=== PATIENT | female | born 2000 | race African-American/Black ===

== ENCOUNTER 2024-02-25 19:00 | Emergency (ER) | payer OTHER, SELFPAY ==
[2024-02-25 19:06] VITALS: BP 156/105; BMI 31.0
[2024-02-25 19:21] LABS: % Basophils 0.6 % (0-2); % Eosinophils 0.8 % (0-6); % Immature Granulocytes 0.4 % (0-0.5); % Lymphocytes 32.7 % (20.5-51.1); % Monocytes 8.1 % (1.7-9.3); % Neutrophils 57.4 % (42.2-75.2); Absolute Lymphocytes 1.7 10^3/uL (1.2-3.4); Absolute Monocytes 0.4 10^3/uL (0.1-0.6); Absolute Neutrophils 2.9 10^3/uL (1.4-6.5); Hematocrit 35.6 % (37.0-47.0); Hemoglobin 11.9 g/dL (12.0-16.0); Mean Corp Hgb Conc. 33.4 g/dL (33.0-37.0); Mean Corpuscular Hgb 26.7 pg (27.0-31.0); Mean Platelet Volume 9.3 fL (7.4-10.4); Nucleated Red Blood Cells % 0 %; Platelet Count 279 10^3/uL (130-400); Red Blood Cell Count 4.45 10^6/uL (4.20-5.40); Red Cell Dist. Width 12.4 % (11.5-14.5); White Blood Cell Count 5.1 10^3/uL (4.8-10.8)
[2024-02-25 19:45] LABS: ALT (SGPT) 23 U/L (0-35); AST (SGOT) 28 U/L (14-36); Albumin 4.5 g/dl (3.5-5.0); Alkaline Phosphatase 85 U/L (38-126); Blood Urea Nitrogen 7 mg/dl (7-17); Calcium 9.5 mg/dl (8.4-10.2); Carbon Dioxide 23 mmol/L (22-30); Chloride 106 mmol/L (98-107); Estimated Creatinine Clearance 117 ml/min; Glucose 106 mg/dl (70-99); Lipase 193 U/L (23-300); Potassium 3.7 mmol/L (3.5-5.1); Sodium 136 mmol/L (135-145); Total Protein 7.2 g/dl (6.3-8.2); eGFR > 60.00
[2024-02-25 23:02] LABS: Urine Albumin Negative (Neg - Trace); Urine Bilirubin Negative (Negative); Urine Character Clear (Clear); Urine Color Yellow; Urine Glucose Negative (Negative); Urine Ketone Negative (Negative); Urine Leukocyte Negative (Negative); Urine Nitrite Negative (Negative); Urine Occult Blood Negative (Negative); Urine Specific Gravity 1.015 (<1.030); Urine Urobilinogen Negative (Neg - 1+); Urine pH 6.5 (5.0-9.0)
[2024-02-25] MEDS: TORADOL 30 MG IV (23:18)
[2024-02-25 23:22] LABS: HCG, Serum Qualitative Screen Negative
--- NOTE | 2024-02-26 00:26 | ED.GENMED ---
History of Present Illness
General
Chief Complaint: Abdominal Pain
Source: patient
Exam Limitations: none
Time Seen by Provider: 02/25/24 22:20
Nursing documentation reviewed up to this point in time: agreed with
Travel History
Have you had any contact with someone who has COVID-19?: No
Do you have any symptoms of coronavirus? Fever > 100 degrees, chills, cough, shortness of breath, sore throat, loss of taste or smell, muscle aches, or headache?: No
History of Present Illness
History of Present Illness:
This is a 23-year-old woman who complains of persistent left upper quadrant to left flank pain that began end of December, persistent daily pain with intermittent waves of severe pain accompanied with nausea, occasional vomiting. Left upper
quadrant pain occasionally radiates to her left lower quadrant, sometimes worse with movement, sometimes worse or exacerbated after passing a bowel movement. She has been moving her bowels at least once per day reports passing soft to firm stools.
She denies dysuria and urgency and or hematuria. She denies fever nor chills. No insightful injury but does admit to remaining active on a daily basis at work.
Yesterday the pain worsened after eating a banana causing nausea and 1 episode of vomiting.
Evaluated by her PCP last month and was started on omeprazole 20 mg twice daily in early January. Thus far has had no improvement in discomfort.
She does note occasional sore throat but denies cough nor chest pain nor shortness of breath.
She also notes occasional flares of increased pain accompanied with diaphoresis and fine itchy rash that develops on her upper chest, upper lip, bilateral forearms/antecubital fossa's. She denies swelling nor urticarial rash, no accompanying cough
nor shortness of breath. Itchy rash in pain eventually resolve within a few hours.
Last menstrual period February 15 and normal and on time. She denies risk of .
Other than twice daily omeprazole her only other medication is MetroGel for BV.
Past History
Past History
ED Past Medical History: Other (Bacterial vaginosis)
ED Past Surgical History: None
Social History
Tobacco: Non-smoker
Alcohol: None
Drug: None
Personal:
Living: with family
Employment: Employed
Family History
Family History: Other (Noncontributory)
Phy Exam
Physical Exam
Physical Exam:
GENERAL: Alert , in no apparent distress. 23-year-old female appears her stated age, bright and alert, pleasant, appears in no acute distress.
EYE: anicteric
NECK: Supple, nontender, no meningismus, no significant adenopathy.
ENT: posterior pharynx is clear, oral mucosa is moist. No rhinorrhea.
CARDIAC: Regular rate and rhythm. no murmur.
LUNGS: Clear breath sounds bilaterally, no acute respiratory distress, no wheezes/rales/rhonchi
ABDOMEN: Soft, nondistended, mild to moderate tenderness left upper lateral quadrant, left lateral flank as well as left CVA tenderness to palpation. No r/g, no palpable masses. Normoactive BS.
NEUROLOGICAL: Alert and oriented x3, no focal neuro deficits. Gait is gillespie and steady.
SKIN: Warm and dry, normal color, skin intact. No rash.
MUSCULOSKELETAL: No C/C/E. peripheral pulses are full and equal b/l. No palpable tenderness.
PSYCH: Normal and appropriate interaction.
Course
Orders/Labs/Results
Orders:
Orders
02/25/24 19:15
Complete Blood Count/With Diff Urgent
Comprehensive Metabolic Panel Urgent
HCG, Serum Qualitative Screen Urgent
Comment: ADD ON
Lipase Urgent
02/25/24 22:49
Add On- LAB Urgent
Tests Added?: qual serum HCG
02/25/24 22:56
Urinalysis Reflex To Culture Urgent
Date Specimen was Collected: 02/25/24
Time Specimen was Collected: 22:55
02/25/24 23:14
Ketorolac [Toradol] 30 mg .ROUTE .STK-MED ONE
02/25/24 23:17
Ketorolac [Toradol] 30 mg IV NOW STA
02/26/24 00:30
CT Abd/pelvis W Iv Cont Urgent
Reason For Exam: persistent LUQ to L flank pain w N, intermittent V
Abnormal Lab Results
02/25/24
19:15
Hgb 11.9 L g/dL
(12.0-16.0)
Hct 35.6 L %
(37.0-47.0)
MCV 80.0 L fL
(81.0-99.0)
MCH 26.7 L pg
(27.0-31.0)
Glucose 106 H mg/dl
(70-99)
02/25/24 19:15
02/25/24 19:15
Vital Signs
Initial and Last Documented VS:
Initial Vital Signs
Temp Pulse Resp BP Pulse Ox
98.5 F 79 16 156/105 99
02/25/24 19:06 02/25/24 19:06 02/25/24 19:06 02/25/24 19:06 02/25/24 19:06
Last Documented Vital Signs
Temp Pulse Resp BP Pulse Ox
98.1 F 69 16 131/75 99
02/26/24 02:23 02/26/24 02:23 02/26/24 02:23 02/26/24 02:23 02/26/24 02:23
MDM/Problems Addressed
Differential Diagnosis Includes:
Concern for renal colic, constipation, musculoskeletal pain, splenomegaly. With ongoing symptoms over the past month and a half, no accompanying fever, pyelonephritis is unlikely.
No prior abdominal surgeries, bowel obstruction is unlikely.
Labs thus far are unremarkable with normal white blood cell count, unremarkable chemistries.
Will check hCG, urinalysis and plan for CT abdomen pelvis.
Will medicate for pain with IV Toradol.
*Radiology
Radiology exam reviewed: radiology read reviewed
*Pulse Oximetry
Patient hypoxic: no
*Critical Care Note
Total Time (30-74mins, 75-104mins- exclusive of procedures): Not Applicable
Update Note
Update Note:
02/26/2024 0228 AM
Patient resting, sleeping upon reevaluation.
Admits to moderate relief of pain after IV dose of Toradol.
CAT scan shows most of small bowel fluid-filled which can be seen with gastroenteritis or hypersecretory/malabsorptive state. No evidence for colitis nor bowel obstruction or free air. Pancreas, kidneys, liver and spleen are all unremarkable.
With ongoing symptoms over the past month and a half, gastroenteritis is unlikely. Patient may have an element of nonspecific enteritis, there is no evidence of small bowel inflammation thus less likely inflammatory bowel disease but always a
consideration.
Recommend patient be evaluated by GI.
Recommend bland diet and will trial a course of as needed Bentyl for abdominal pain and Zofran for as needed nausea.
Recommend follow-up with PCP as well.
Return precautions discussed.
ED Attending Note
-
Portions of this chart may have been created with voice recognition software.� Occasional wrong word or��sound alike� substitutions may have occurred due to the inherent limitations of voice recognition software.
Discharge Plan
Departure
Patient Disposition: Home (Routine Discharge)
Date of Disposition: 02/26/24
Time of Disposition: 02:21
Patient with high blood pressure during this ER visit?: No
Condition: Good
Discharge Problem:
Abdominal pain, chronic, left upper quadrant, Enteritis
Instructions: Pitkin Diet, Abdominal Pain
Prescriptions:
New
dicyclomine 20 mg tablet
20 mg PO QID PRN (Reason: abdominal pain) Qty: 30 0RF
ondansetron 4 mg tablet,disintegrating
4 mg PO QID PRN (Reason: nausea and vomiting) Qty: 20 0RF
Referrals:
NONE,* [Family Provider] -
Su Wong, DO [Active] - Call in 1-3 days for appt
Stand Alone Forms: Return to Work
Interventions
Interventions:
*Risk Screen - Suicide Last Done: 02/25/24 19:06
*General Assessment Last Done: 02/25/24 20:45
*Neglect/Abuse Screening Last Done: 02/25/24 19:06
ED- Fall Risk Assessment Last Done: 02/25/24 21:54
*ED COVID-19 Vaccine History Last Done: 02/25/24 19:06
*Nursing Disposition Last Done: 02/26/24 02:25
UL-Auapwy-Bosxzstuet Assessment Last Done: 02/25/24 21:54
Discharge Date and Time
Discharge Date/Time: 02/26/24 02:31
Print Language: MALTESE
[2024-02-26 02:23] VITALS: BP 131/75
== END 2024-02-26 02:31 | disposition home or self-care (01) ==
LOC: EMR 19:00
PROVIDERS: Emergency Medicine; EMERGENCY PHYSICIAN Emergency Medicine
DX: K52.9 Noninfective gastroenteritis and colitis, unspecified (principal); G89.29 Other chronic pain
CPT/HCPCS: 99285; 96374; 74177; 80053; 81003; 83690; 84703; 85025; Q9967